=== PATIENT | female | born 1950 | race Caucasian/White ===

== ENCOUNTER 2021-04-13 09:28 | Outpatient (REF) | payer OTHER, SELFPAY ==
--- NOTE | 2021-04-13 15:14 | MHC.AU.AHA ---
Adult Audiological Evaluation Date of Visit: 04/13/21 Locker Plant Attendant Used: [place]er- In Person Reason for Appointment: History of asymmetrical hearing loss (right ear worse). Patient questions if there has been a change in her hearing. Previous Hearing Test Results: Performed at [facility] on 12/10/2017. Mild to severe sensorineural hearing loss bilaterally, worse in the right ear. Word discrimination was 88% in the left ear and 10% in the right ear. Medical History: Medical History: Diabetes Hearing Instrument History- Right Ear: Clerical Car Checker: Phonak Model: CROS B-312 Serial Number: [id number] Battery Size: 312 Repair Warranty: 03/28/2021 Loss and Damage Warranty: 03/28/2021 Dispensed By: [facility] Date of Fittin02/18/2018 Hearing Instrument History- Left Ear: Clerical Car Checker: Phonak Model: [place] B50-312 Serial Number: [id number] Battery Size: 312 Warranty: 03/28/2021 Loss and Damage Warranty: 03/28/2021 Dispensed By: [facility] Date of Fittin02/18/2018 Otoscopy: Right Ear: Unremarkable Left Ear: Unremarkable Tympanometry: Tympanometry performed due to: To assess integrity of the middle ear system Right Ear: Hypercompliant Middle Ear System (Type Ad) Left Ear: Hypercompliant Middle Ear System (Type Ad) Hearing Evaluation: Transducer(s) Used: Insert Earphones Method: Conventional Audiometry Stimuli Used: Pure Tones Right Ear: Description of Hearing: Moderate to profound sensorineural hearing loss Left Ear: Description of Hearing: Mild to profound sensorineural hearing loss Speech Recognition Threshold (SRT): Method Used: Recorded Lists Stimuli Used: [place] Trisyllable Words Right Ear: 70 dBHL Left Ear: 45 dBHL Word Discrimination: Method: Recorded Lists Word Lists Used: Lista Bisil?bica ([place]er) Right Ear: 32% at 95 dBHL Left Ear: 84% at 80 dBHL Comparison: Compared to the most recent evaluation: Thresholds have decreased bilaterally. Recommendations: Audiological re-evaluation in one year. Hearing aid maintenance performed today. Hearing aid(s) reprogrammed with updated test results. See Hearing Aid Follow-Up note for more information. Diagnosis: Primary Diagnosis: H90.3 Bilateral Sensorineural Hearing Loss Signature: Provider: Rosanna Perez, CCC-A
--- NOTE | 2021-04-13 15:15 | MHC.AU.HFU ---
Hearing Instrument Follow-Up- Binaural Date of Visit: 04/13/21 Assistant Facility Manager Used: [place]- In Person Right Ear: Certified Wellness Program Coordinator: Phonak Model: CROS B-312 Serial Number: [id number] Repair Warranty: 03/28/2021 Loss and Damage Warranty: 03/28/2021 Battery Size: 312 Type of Dome: Medium Open Dispensed By: [facility] Date of Fittin02/18/2018 Left Ear: Certified Wellness Program Coordinator: Phonak Model: [place]o B50-312 Serial Number: [id number] Repair Warranty: 03/28/2021 Loss and Damage Warranty: 03/28/2021 Battery Size: 312 Type of Dome: Medium Open Dispensed By: [facility] Date of Fittin02/18/2018 Follow-Up Summary: Patient was seen for audiological re-evaluation (see separate report for details). Patient reported the hearing instruments did not seem to be working. She also reported that she has been changing the batteries every 3 days. Her last maintenance was on 01/21/2019. Hearing aid inspected. Left instrument was occluded w/cerumen. Replaced wax guard. Replaced domes on both instruments. Cleaned excessive debris out of battery compartments. Hearing instruments were working well after maintenance. Hearing aid programming was updated with today's results. Patient was pleased with the sound of the instruments. Now that the debris has been cleaned out of the battery compartment, the battery life may be different. If the batteries are still only lasting 3 days, she was advised to let us know, and the instruments may need to be sent for repair. Recommendations: Hearing instrument follow-up or maintenance as needed. Patient will call if problems persist. Signature: Provider: Rosanna Perez, CCC-A
== END 2021-04-13 09:29 | disposition home or self-care (01) ==
LOC: HO.SH 09:28
PROVIDERS: Visit Provider Nurse Practitioner Family
DX: H90.3 Sensorineural hearing loss, bilateral (principal); E11.9 Type 2 diabetes mellitus without complications
CPT/HCPCS: 92557; 92567